=== PATIENT | female | born 1975 | race Caucasian/White ===

== ENCOUNTER 2019-06-16 10:20 | Emergency (ER) | payer BC, SELFPAY | END 2019-06-16 11:20 | disposition home or self-care (01) | LOC: BURERS 10:20 | DX: J11.1 Influenza due to unidentified influenza virus with other respiratory manifestations (principal); F17.200 Nicotine dependence, unspecified, uncomplicated; F17.290 Nicotine dependence, other tobacco product, uncomplicated | CPT/HCPCS: 99283 ==

== ENCOUNTER 2023-12-21 21:36 | Emergency (ER) | payer BC, SELFPAY | END 2023-12-21 22:33 | disposition home or self-care (01) | LOC: BURERS 21:36 | DX: F41.9 Anxiety disorder, unspecified (principal); Z87.891 Personal history of nicotine dependence | CPT/HCPCS: 93005 ==